=== PATIENT | female | born 2005 | race Caucasian/White ===

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

== ENCOUNTER → 2023-07-02 | Outpatient (CLI) | payer OTHER ==
[2023-07-02 11:31] LABS: BASO # 0.04 K/mm3 (0.02-0.10); EOS # 0.04 K/mm3 (0.04-0.40); EOS % 0.6 % (0.1-4.0); HEMATOCRIT 42.6 % (35.0-45.0); HEMOGLOBIN 14.1 g/dL (12.0-15.0); LYMPH# 1.96 K/mm3 (1.20-3.40); MEAN CELL VOLUME 91 fl (78-95); MEAN CORPUSCULAR HEMOGLOBIN 30 pg (26-32); MEAN CORPUSCULAR HGB CONC 33 g/dL (33-37); MEAN PLATELET VOLUME 10.5 fl (7.4-10.4); MONO # 0.52 K/mm3 (0.10-0.60); NEU # 3.66 K/mm3 (1.40-6.50); PLATELET COUNT 260 K/mm3 (130-400); RED CELL DISTRIBUTION WIDTH 12.2 % (11.5-14.5); WHITE BLOOD COUNT 6.2 K/mm3 (4.8-10.8)
[2023-07-02 12:04] LABS: ALBUMIN 4.2 g/dL (3.5-5.0)
[2023-07-02 12:06] LABS: TOTAL PROTEIN 6.8 g/dL (6.4-8.3)
[2023-07-02 12:08] LABS: TOTAL BILIRUBIN 0.3 mg/dL (0.2-1.2)
== END ==
LOC: LAB 11:00
PROVIDERS: Physician Assistant
DX: Z13.1 Encounter for screening for diabetes mellitus (principal); Z13.220 Encounter for screening for lipoid disorders; R53.83 Other fatigue

== ENCOUNTER → 2023-09-22 | Outpatient (CLI) | payer OTHER | LOC: LAB 09:53 | DX: Z02.0 Encounter for examination for admission to educational institution (principal) ==